=== PATIENT | female | born 2000 | race Caucasian/White ===

== ENCOUNTER 2022-03-08 17:28 | Emergency (ER) | payer SELFPAY ==
[~2022-03-08] VITALS: Ht 162.6 cm; Wt 52.6 kg
--- NOTE | 2022-03-08 18:33 | NUR ---
PT WALKED IN TO ER C/O LEFT FLANK PAIN WITH DYSURIA X 5 DAYS. DENIES HEMATURIA. AFIBRILE UPON ARRIVAL. PT AMBULATED TO BED WITH STEADY GAIT, AAOX4. BREATHING EVEN AND UNLABORED. AWAITING MD ORDERS.
--- NOTE | 2022-03-08 18:45 | NUR ---
URINE SAMPLE COLLECTED AND SENT TO LAB.
[2022-03-08] MEDS ORDERED: KETOROLAC TROMETHAMINE INJ 30 MG/ML VIAL IV ONE (19:00)
--- NOTE | 2022-03-08 19:12 | NUR ---
ESTABLISHED IV 20G RIGHT AC. BLOOD DRAWN AND SENT TO LAB.
[2022-03-08] MEDS ORDERED: IV NS 0.9% 1,000 ML IV ONE (19:30)
[2022-03-08] MEDS ORDERED: KETOROLAC TROMETHAMINE 15 MG/ML VIAL ONE (19:42)
--- NOTE | 2022-03-08 19:48 | NUR ---
RECEIVED PT IN ER BED 1. ALERT AND ORIENTED. C/O FLANK PAIN 7/10 ON PAIN SCALE. RR EVEN AND NON LABORED. CONNECTED TO MONITOR. RAC20G IV LINE PATENT AND INTACT NOTED. FAMILY AT BEDSIDE. WILL CONTINUE TO MONITOR
[2022-03-08 19:53] LABS: CALCIUM, SERUM 8.8 mg/dL (8.5-10.1); POTASSIUM 3.8 mmol/L (3.5-5.1)
[2022-03-08 19:53] LABS: BILIRUBIN,URINE NEGATIVE (NEGATIVE); COLOR,URINE YELLOW (YELLOW); LEUKOCYTE ESTERASE ,URINE NEGATIVE (NEGATIVE); NITRITE, URINE NEGATIVE (NEGATIVE); PROTEIN,URINE NEGATIVE (NEGATIVE); UGLUCOSE NEGATIVE (NEGATIVE); UROBILINOGEN,URINE 0.2 EU/dL (0.2)
[2022-03-08 20:05] LABS: HEMATOCRIT 35 % (33-45); HEMOGLOBIN 11.3 g/dL (11.5-14.8); LYMPHOCYTES # (AUTO) 1.6 K/uL (0.8-4.8); LYMPHOCYTES % (AUTO) 10.6 % (20.0-44.0); MEAN CORPUSCULAR HGB CONC 33 g/dl (31.0-36.0); MEAN CORPUSCULAR VOLUME 87 fL (82-100); MONOCYTES # (AUTO) 1.6 K/uL (0.1-1.30); MONOCYTES % (AUTO) 11.1 % (2.0-12.0); NEUTROPHILS # (AUTO) 11.5 K/uL (1.8-8.9); NEUTROPHILS % (AUTO) 78.3 % (43.0-81.0); PLATELET COUNT (AUTO) 312 K/uL (150-450); RED BLOOD CELL COUNT(AUTO) 3.98 MIL/uL (4.0-5.2); WHITE BLOOD COUNT (AUTO) 14.7 K/uL (4.3-11.0)
[2022-03-08 20:08] LABS: BACTERIA,URINE 1+ /HPF (None Seen); SQUAMOUS EPITHELIAL CELL,UR 0-2 /HPF (None Seen); WBC,URINE 0-2 /HPF (0-3)
[2022-03-08] MEDS ORDERED: CEFTRIAXONE 1GM BAG (ER ONLY) 50 ML IV ONE (20:27)
[2022-03-08] MEDS ORDERED: CEFTRIAXONE 1GM BAG (ER ONLY) 1 GM/50 ML PIGGYBACK IV ONE (20:30)
--- NOTE | 2022-03-08 20:36 | NUR ---
PT TAKEN TO CT SCAN VIA [facility]
[2022-03-08] MEDS ORDERED: MORPHINE SULFATE INJ 2 MG/ML DISP.SYRIN IV ONE (22:00)
[2022-03-08] MEDS ORDERED: MORPHINE SULFATE INJ 4 MG/ML DISP.SYRIN ONE (22:00)
[2022-03-09] MEDS ORDERED: IBUP-1953 PO (00:06)
[2022-03-09] MEDS ORDERED: CIPR500T5 PO (00:06)
--- NOTE | 2022-03-09 00:15 | NUR ---
Patient discharged to home in stable condition. Written and verbal after care instructions given. Patient verbalizes understanding of instruction.
--- NOTE | 2022-03-09 00:15 | NUR ---
IV removed. Catheter intact and site benign. Pressure and 4x4 applied to site. No bleeding noted.
[2022-03-09 00:33] VITALS: BP 112/64
== END 2022-03-09 00:34 | disposition home or self-care (01) ==
LOC: ER 17:33
DX: R10.9 Unspecified abdominal pain (principal); R59.0 Localized enlarged lymph nodes; N83.201 Unspecified ovarian cyst, right side; J45.909 Unspecified asthma, uncomplicated; Z79.899 Other long term (current) drug therapy
CPT/HCPCS: 99284; 74176; 96365; 76856; 96375; 85025; 80048; 84703; 81001; 36415; J2270; J7030; J0696; J1885